=== PATIENT | female | born 1965 | race Caucasian/White ===

== ENCOUNTER 2016-08-05 13:20 | Emergency (ER) | payer MEDICAID, OTHER ==
[~2016-08-05] VITALS: Ht 165.1 cm; Wt 86.2 kg
[~2016-08-05 13:20] MED LIST: CLON1TAB3 PO; ETH1T GT; GABA800T97; HYDR-2595; METH750T3; OXYC325T14; PRED-188; TEMA30CA; VENL100T PO; VENL37.588; [UNRECOGNIZED DRUG - CODE] OR
[2016-08-05 13:43] VITALS: BP 160/99
[2016-08-05] MEDS ORDERED: cefTRIAXone SOD 1,000 MG VL ONE (20:56)
== END 2016-08-05 21:08 | disposition left against medical advice (07) ==
LOC: ER 13:20
DX: M54.9 Dorsalgia, unspecified (principal); Z53.21 Procedure and treatment not carried out due to patient leaving prior to being seen by health care provider
CPT/HCPCS: J0696